=== PATIENT | female | born 1980 | race Two or more races ===

== ENCOUNTER 2018-07-17 15:25 | Outpatient (CLI) | payer OTHER | END 2018-07-17 16:58 | disposition home or self-care (01) | LOC: NST 15:25 | DX: Z34.83 Encounter for supervision of other normal pregnancy, third trimester (principal) ==

== ENCOUNTER 2018-08-16 12:23 | Inpatient (IN) | payer OTHER ==
[~2018-08-16] VITALS: Ht 165.1 cm; Wt 76.7 kg
[2018-08-23] MEDS ORDERED: RANITIDINE HCL300 MG PO (08:11)
[2018-08-23] MEDS ORDERED: CLOTRIMAZOLE15 GM TOP (08:11)
== END 2018-08-24 11:50 | disposition home or self-care (01) | DRG 807 ==
LOC: EDSTATUS 12:30 → ADM 12:30 → OB/GYN 08-22 09:08 → LDR 08-22 09:08 → OB/GYN 08-23 07:11
PROVIDERS: ADMIT Obstetrics & Gynecology
PROC: 10E0XZZ Delivery of Products of Conception, External Approach (ICD-10-PCS; principal; 2018-08-22)
PROC: 10907ZC Drainage of Amniotic Fluid, Therapeutic from Products of Conception, Via Natural or Artificial Opening (ICD-10-PCS; 2018-08-22)
PROC: 0W8NXZZ Division of Female Perineum, External Approach (ICD-10-PCS; 2018-08-22)
PROC: 3E0P7VZ Introduction of Hormone into Female Reproductive, Via Natural or Artificial Opening (ICD-10-PCS; 2018-08-22)
PROC: 3E033VJ Introduction of Other Hormone into Peripheral Vein, Percutaneous Approach (ICD-10-PCS; 2018-08-22)
PROC: 4A1HXCZ Monitoring of Products of Conception, Cardiac Rate, External Approach (ICD-10-PCS; 2018-08-22)
DX: O80 Encounter for full-term uncomplicated delivery (principal); Z37.0 Single live birth; Z3A.39 39 weeks gestation of pregnancy

== ENCOUNTER 2019-07-23 22:30 | Emergency (ER) | payer OTHER ==
[~2019-07-23] VITALS: Ht 165.1 cm; Wt 68.5 kg
[~2019-07-23 22:30] MED LIST: CLOTRIMAZOLE15 GM TOP; RANITIDINE HCL300 MG PO
[2019-07-23] MEDS ORDERED: ADVIL (22:45)
[2019-07-24] MEDS ORDERED: KETO10TA2 PO (01:19)
== END 2019-07-24 01:39 | disposition home or self-care (01) ==
LOC: ER 22:30
DX: R07.89 Other chest pain (principal); M94.0 Chondrocostal junction syndrome [Tietze]

== ENCOUNTER 2019-08-02 06:11 | Day surgery (SDC) | payer OTHER ==
[~2019-08-02 06:11] MED LIST changes: +ADVIL; +KETO10TA2 PO
[2019-08-02] MEDS ORDERED: COLACE100 MG PO (08:18)
[2019-08-02] MEDS ORDERED: PERCOCET 5-3251 EACH PO (08:18)
== END 2019-08-02 14:30 | disposition home or self-care (01) ==
LOC: CIR.AMB 06:11 → ADM 14:15 → CIR.AMB 14:15
PROVIDERS: ATTEND Surgery
DX: K64.8 Other hemorrhoids (principal)

== ENCOUNTER 2024-12-28 17:54 | Emergency (ER) | payer OTHER ==
[~2024-12-28] VITALS: Ht 167.6 cm; Wt 66.7 kg
[~2024-12-28 17:54] MED LIST changes: +COLACE100 MG PO; +PERCOCET 5-3251 EACH PO
[2024-12-28 19:19] VITALS: BP 168/93; O2SAT 100
[2024-12-28] MEDS ORDERED: LIALDA1.2 GM (19:24)
[2024-12-28] MEDS ORDERED: PREDNISONE20 MG (19:24)
[2024-12-28] MEDS ORDERED: METOCLOPRAMIDE HCL 5 MG/ML VIAL IM ONE (20:00)
[2024-12-28] MEDS ORDERED: DEXAMETHASONE SODIUM PHOSPHATE 4 MG/ML VIAL IM ONE (20:00)
[2024-12-28] MEDS ORDERED: KETOROLAC TROMETHAMINE 30 MG VIAL IM ONE (20:00)
[2024-12-28] MEDS ORDERED: BUTALB-ASPIRIN1 EACH PO (21:38)
== END 2024-12-28 23:23 | disposition home or self-care (01) ==
LOC: ER 17:54
DX: G43.509 Persistent migraine aura without cerebral infarction, not intractable, without status migrainosus (principal); Z91.013 Allergy to seafood